=== PATIENT | female | born 1985 | race African-American/Black ===

== ENCOUNTER 2016-07-16 17:56 | Emergency (ER) | payer OTHER ==
[2016-04-11 19:28] VITALS: BP 106/58
== END 2016-07-16 17:58 | disposition left against medical advice (07) ==
LOC: ED 17:56
DX: R19.7 Diarrhea, unspecified (principal)
CPT/HCPCS: 99281

== ENCOUNTER 2017-08-12 14:57 | Emergency (ER) | payer OTHER ==
[2017-08-12 15:15] VITALS: BP 120/70
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
== END 2017-08-12 15:25 | disposition home or self-care (01) ==
LOC: ED 14:57
DX: M54.2 Cervicalgia (principal)
CPT/HCPCS: 99282